=== PATIENT | male | born 1980 | race Two or more races ===

== ENCOUNTER 2023-10-10 08:29 | Outpatient (REF) | payer SELFPAY ==
[2023-10-10 15:16] LABS: Cholesterol 181 mg/dL (<200); HDL Cholesterol 36 mg/dL (>40); LDL Cholesterol Calculated 98 mg/dL (<100); Triglycerides 239 mg/dL (<150)
== END 2023-10-10 08:30 | disposition home or self-care (01) ==
LOC: HO.CHCLDS 08:29
PROVIDERS: Visit Provider Internal Medicine
DX: E78.1 Pure hyperglyceridemia (principal)
CPT/HCPCS: 36415; 80061

== ENCOUNTER 2023-10-13 09:24 | Outpatient (REF) | payer OTHER, SELFPAY ==
[2023-10-13 15:22] LABS: TSH reflex Free T4 1.05 uIU/mL (0.32-4.0)
[2023-10-16 10:53] LABS: Free Prostate Spec Ag 0.3 ng/mL; Percent Free Prostate Spec Ag 21 % (calc) (>25); Prostate Specific Ag Total 1.4 ng/mL (< OR = 4.0)
[2023-10-17 13:09] LABS: Testosterone, Total 499 ng/dL (250-1100)
== END 2023-10-13 09:25 | disposition home or self-care (01) ==
LOC: HO.CHCLDS 09:24
PROVIDERS: Visit Provider Internal Medicine
DX: N52.8 Other male erectile dysfunction (principal); Z79.899 Other long term (current) drug therapy
CPT/HCPCS: 36415; 84154; 84403; 84443

== ENCOUNTER 2024-08-19 08:24 | Outpatient (REF) | payer OTHER, SELFPAY ==
[2024-08-19 15:21] LABS: MANUAL DIFF FLAG NO
[2024-08-19 15:27] LABS: Basophils Absolute Auto 0.1 X10*3/uL (0.0-0.2); Basophils Percent Auto 0.6 % (0-2); Eosinophils Absolute Auto 0.2 X10*3/uL (0.0-0.4); Hematocrit 49.8 % (42.0-52.0); Hemoglobin 16.8 g/dl (14.0-18.0); Imm Gran Abs Auto 0.11 X10*3/uL (0.00-0.03); Imm Gran Pct Auto 1.4 % (0.0-0.4); Lymphocytes Absolute Auto 2.4 X10*3/uL (1.2-4.9); Lymphocytes Percent Auto 29.6 % (20-40); Mean Corpuscular HGB Conc 33.7 g/dl (31.0-36.0); Mean Corpuscular Hemoglobin 27.7 pg (27.0-33.0); Mean Platelet Volume 10.9 fL (9.4-12.4); Monocytes Absolute Auto 0.5 X10*3/uL (0.1-1.2); Monocytes Percent Auto 6.7 % (2-11); Neutrophils Absolute Auto 4.9 x10*3/uL (2.0-8.3); Neutrophils Percent Auto 59.7 % (45-73); Platelet Count 241 X10*3/uL (160-400); Red Blood Count 6.07 X10*6/uL (4.60-5.80); White Blood Count 8.1 X10*3/uL (4.8-10.8)
[2024-08-19 16:12] LABS: Alanine Aminotransferase 39 U/L (0-40); Albumin Level 4.7 g/dL (3.5-5.0); Alkaline Phosphatase 75 U/L (39-117); Amylase 47 U/L (28-100); Anion Gap 14 (12-20); Aspartate Amino Transferase 30 U/L (5-37); Bilirubin Total 0.8 mg/dL (0.0-1.0); Blood Urea Nitrogen 10 mg/dL (9-16); Calcium 9.8 mg/dL (8.4-10.2); Carbon Dioxide 23 mmol/L (22-29); Chloride 106 mmol/L (96-108); Cholesterol 186 mg/dL (<200); Estimated Glomerular Filt Rate > 60; Glucose Random 79 mg/dL (60-115); HDL Cholesterol 39 mg/dL (>40); LDL Cholesterol Calculated 93 mg/dL (<100); Lipase 15 U/L (8-78); Potassium 3.9 mmol/L (3.3-5.1); Sodium 139 mmol/L (135-145); TSH reflex Free T4 2.11 uIU/mL (0.32-4.0); Total Protein 7.9 g/dL (6.5-8.0); Triglycerides 274 mg/dL (<150)
== END 2024-08-19 08:25 | disposition home or self-care (01) ==
LOC: HO.CHCLDS 08:24
PROVIDERS: Visit Provider Internal Medicine
DX: E78.1 Pure hyperglyceridemia (principal); I10 Essential (primary) hypertension
CPT/HCPCS: 36415; 80053; 80061; 82150; 83690; 84443; 85025